=== PATIENT | female | born 1965 | race Caucasian/White ===

== ENCOUNTER 2023-12-12 08:52 | Outpatient (RCR) | payer OTHER, SELFPAY ==
--- NOTE | 2023-12-12 07:42 | PTOPEVAL1 ---
Assessment and note entered by Faraz Carmona Evaluation Information Assessment Status Evaluation Diagnosis chronic right knee pain Onset 10/29/23 Subjective Information Pt. reports that her right knee pain began about 1 month ago. She reports having a past tibial plateau fx on the right. She states that pain is typically in the front and back of the right knee. She reports that the knee can give out while walking. She states that she underwent xray last week which revealed osteoarthritis of the right knee joint. She has hx of osteoporosis. She states that going up and down stairs is the most painful. She reports that she also notes most pain with standing activities. She reports that her goal is to reduce her right knee pain. Reported Pain Level Pain Score 2: Self Report Assessment PT Clinical Summary Pt. is a 58 year old female who enters the clinic with right knee pain. Xray reveals significant arthritic change of the right knee. She currently presents with impaired ROM, impaired strength, impaired flexibility, impaired gait and pain. Continued skilled PT is recommended in order to improve these areas to allow for improved comfort with IADL performance. Plan of Care Interventions Electrical Stimulation,Gait Training,Hot Pack/Cold Pack,Manual Therapy,Neuro Re-education,Patient/ Caregiver Educati,Therapeutic Activities, Therapeutic Exercise PT Services Indicated Yes Treatment Frequency and 2x/week x 8 visits Duration These treatments will address the objective and functional deficits as defined above. The patient will be advanced safely and appropriately in order for the patient to progress towards his/her prior level of function. Additional exercises will be introduced and as well as a comprehensive home exercise program upon discharge, if needed, ?to ensure carryover of functional gains achieved in the clinic. This treatment plan has been reviewed and agreement upon by the patient.
--- NOTE | 2023-12-12 07:56 | OPREHPOC ---
Outpatient Therapy Plan of Care This is a Multidisciplinary Plan of Care that may contain components documented by all disciplines (PT, OT, and ST.) PT Problem 1 PT Problem #1 Knowledge Deficit PT Goal 1 Goal Pt. will be independent with a HEP focusing on ROM advent and strength. Target Visit 2 PT Problem 2 PT Problem #2 Pain PT Goal 1 Goal Pt. will report pain levels at 3/10 at worst. Target Visit 8 PT Problem 3 PT Problem #3 Impaired Range of Motion PT Goal 1 Goal Pt. will achieve 4-110 degrees right knee active ROM to improve gait mechanics. Target Visit 8 PT Problem 4 PT Problem #4 Impaired Gait PT Goal 1 Goal Pt. will ambulate with equal right and left stance time. PT Problem 5 PT Problem #5 Impaired Functional Mobil PT Goal 1 Goal Pt. will present with less than 30% limitation on the LEFS indicating overall improved function. Target Visit 8
--- NOTE | 2024-01-05 10:29 | OPREHPOC ---
Outpatient Therapy Plan of Care This is a Multidisciplinary Plan of Care that may contain components documented by all disciplines (PT, OT, and ST.) PT Problem 1 PT Problem #1 Knowledge Deficit PT Goal 1 Goal Pt. will be independent with a HEP focusing on ROM samaritan and strength. Target Visit 2 Progress Met PT Problem 2 PT Problem #2 Pain PT Goal 1 Goal Pt. will report pain levels at 3/10 at worst. Target Visit 8 Progress Met PT Problem 3 PT Problem #3 Impaired Range of Motion PT Goal 1 Goal Pt. will achieve 4-110 degrees right knee active ROM to improve gait mechanics. Target Visit 8 Progress Partially Met PT Problem 4 PT Problem #4 Impaired Gait PT Goal 1 Goal Pt. will ambulate with equal right and left stance time. Progress Met PT Problem 5 PT Problem #5 Impaired Functional Mobil PT Goal 1 Goal Pt. will present with less than 30% limitation on the LEFS indicating overall improved function. Target Visit 8 Progress Partially Met
--- NOTE | 2024-01-05 10:29 | PTOPDC ---
Assessment and note entered by Ivy Sharif, PT Evaluation Information Assessment Status Discharge Diagnosis chronic right knee pain Onset 10/29/23 Subjective Information Nereyda Bay reports her right knee has been feeling better since initiating PT. She notes less instances of her knee catching since she has been working on her strength and stability. She is able to drive now without pain. She does continue to have limitations with walking because of right foot pain. She notes pain and tightness along her arch that limits her to walking no more than 3/4 a mile. Reported Pain Level Pain Score 0,2: Self Report Assessment PT Clinical Summary Nereyda Bay has attended 8 skilled PT visits for chronic right knee pain. She is reporting less pain and less instances of catching in the knee since initiating PT. She has been having more right foot pain than knee pain recently. She objectively demonstrates improved right knee AROM, less tenderness at the popliteal fossa, and improved strength. She will be discharged to a home exercise program for her knee but will benefit from initiation of PT for her right foot and ankle. Plan of Care PT Services Indicated Yes
== END 2024-01-05 11:10 | disposition home or self-care (01) ==
LOC: CHSPT 08:52
PROVIDERS: Visit Provider Internal Medicine Geriatric Medicine
DX: M25.561 Pain in right knee (principal); G89.29 Other chronic pain
CPT/HCPCS: 97014; 97110; 97140; 97161; G0283

== ENCOUNTER 2024-01-16 07:31 | Outpatient (RCR) | payer OTHER, SELFPAY ==
--- NOTE | 2024-01-16 08:01 | OPREHPOC ---
Outpatient Therapy Plan of Care This is a Multidisciplinary Plan of Care that may contain components documented by all disciplines (PT, OT, and ST.) PT Problem 1 PT Problem #1 Knowledge Deficit PT Goal 1 Goal patient to demonstrate independence with HEP Target Visit 5 PT Problem 2 PT Problem #2 Pain PT Goal 1 Goal 1. Patient to report highest pain at 2/10 2. Patient to report ability to stand for 1 hour without increase in R foot pain Target Visit 10 PT Problem 3 PT Problem #3 Impaired Range of Motion PT Goal 1 Goal Patient to demonstrate 5 deg of R ankle DF in order to improve heel strike at IC for improved ability to ambulate prolonged distances Target Visit 10 PT Problem 4 PT Problem #4 Impaired Strength PT Goal 1 Goal 1. Patient to demonstrate 5/5 B hip strength to improve ability to ambulate prolonged distances 2. Patient to demonstrate 4+5 R ankle strength to improve ability to walk her dog Target Visit 10 PT Problem 5 PT Problem #5 Impaired Functional Mobil PT Goal 1 Goal 1. patient to improve LEFS by 30% 2. Patient to report ability to grocery shop with no R foot pain 3. Patient to report ability to ambulate 1 mile to walk her dog
--- NOTE | 2024-01-16 08:02 | PTOPEVAL1 ---
Assessment and note entered by Zee Cortes DPT Evaluation Information Assessment Status Evaluation Diagnosis R foot pain Onset 01/09/24 Subjective Information Patient reports since her incident of cauda equina in 11/17 she has had numbness in the both legs with R>L and has resulted in R foot pain. She also was being seen for R knee pain previously but that has improved. She reports that pain is worse with walking the dog, standing for long periods of time and grocery shopping. She reports that when she rests, the arch of her R foot aches. She reports she feels like there is a ball of tight muscles in the arch. She reports she does wear orthotics. Patient works parts time as a dental hygienist. Reported Pain Level Pain Score 1: Self Report Assessment PT Clinical Summary Mrs. Bay is a 58 year old female who presents to PT with R foot pain. She demonstrates decreased R ankle ROM, decreased R LE strength, impaired R foot posture and impaired gait mechanics impairing her ability to walk her dog, complete house hold tasks and grocery shop. She would benefit from skilled PT to address impairments and return to [facility]. Plan of Care Interventions Electrical Stimulation,Gait Training,Hot Pack/Cold Pack,Manual Therapy,Mechanical Traction,Neuro Re- education,Patient/Caregiver Educati,Therapeutic Activities,Therapeutic Exercise PT Services Indicated Yes Treatment Frequency and 2x weekly for 10 visits Duration These treatments will address the objective and functional deficits as defined above. The patient will be advanced safely and appropriately in order for the patient to progress towards his/her prior level of function. Additional exercises will be introduced and as well as a comprehensive home exercise program upon discharge, if needed, ?to ensure carryover of functional gains achieved in the clinic. This treatment plan has been reviewed and agreement upon by the patient.
--- NOTE | 2024-01-27 07:33 | PCPTNOTE ---
patient cancelled due to being ill
--- NOTE | 2024-02-13 07:10 | PCPTNOTE ---
patient called to cancel stating she was called into work
== END 2024-02-17 20:00 | disposition home or self-care (01) ==
LOC: CHSPT 07:31
PROVIDERS: PCP Internal Medicine Geriatric Medicine; Visit Provider Internal Medicine Geriatric Medicine
DX: M79.671 Pain in right foot (principal); R26.9 Unspecified abnormalities of gait and mobility
CPT/HCPCS: 97110; 97112; 97140; 97161